=== PATIENT | male | born 1955 | race American Indian/Alaskan Native ===

== ENCOUNTER 2017-11-15 18:57 | Emergency (ER) | payer MEDICAID ==
[2017-11-15] MEDS ORDERED: ASPIRIN PO ONE (19:23)
[2017-11-15 21:13] LABS: Basophils % (Auto) 0.5 % (0.0-1.8); Eosinophils # (Auto) 0.1 K/mm3 (0.0-0.4); Eosinophils % (Auto) 1.5 % (0.0-4.3); Hematocrit 44.6 % (35.5-45.6); Hemoglobin 15.1 gm/dl (11.8-15.2); Lymphocytes # (Auto) 2.6 K/mm3 (1.2-5.4); Lymphocytes % (Auto) 33.2 % (13.4-35.0); Mean Corpuscular HGB Conc 34 % (32-34); Mean Corpuscular Hemoglobin 30 pg (28-32); Mean Corpuscular Volume 88 fl (84-94); Monocytes # (Auto) 0.6 K/mm3 (0.0-0.8); Platelet Count 197 K/mm3 (140-440); Red Blood Count 5.08 M/mm3 (3.65-5.03); Red Cell Distribution Width 12.9 % (13.2-15.2)
[2017-11-15 21:39] LABS: BUN/Creatinine Ratio 18; Blood Urea Nitrogen 18 mg/dL (9-20); Calcium 10.1 mg/dL (8.4-10.2); Hemolysis Index 4
[2017-11-16] MEDS ORDERED: NACL 0.9% 500 ML 500 ML IV ONE (00:38)
[2017-11-16] MEDS ORDERED: NACL 0.9% 1000 ML 1,000 ML IV ONE (02:10)
--- NOTE | 2017-11-16 02:10 | Emergency Department Report ---
HPI - General Chief Complaint: Hyperglycemia Time Seen by Provider: 11/16/17 00:36 - HPI HPI: The patient is a 62-year-old male presents for evaluation of lightheadedness and polyuria. The patient reports 6 days of severe lightheadedness, exacerbated with position changes and exertion, improved with rest and lying flat, and associated with severe constant polyuria and urinary frequency. The patient denies fever, chills, night sweats, diarrhea, blood in the stool, dark tarry stool, dysuria, hematuria, flank pain, genital discharge, inability to pass flatus. ED Past Medical Hx - Past Medical History Hx Asthma: No Hx COPD: No - Social History Smoking Status: Never Smoker Substance Use Type: None - Medications Home Medications: Home Medications Medication Instructions Recorded Confirmed Last Taken Type HYDROcodone/APAP 5-325 [[place] 1 tab PO PRN 03/25/14 03/27/14 02/25/14 History 5-325 mg TAB] Mv,Fr[place],Min/Iron/Folic Acid/Lut 1 tab PO DAILY 03/25/14 03/27/14 03/25/14 History [Complete Multi Tablet] [place]-3 Fatty Acids/Fish Oil [Fish 1 cap PO DAILY 03/25/14 03/27/14 03/25/14 History Oil] metFORMIN [Glucophage] 500 mg PO QDAY #30 tab 11/16/17 Unknown Rx ED Review of Systems ROS: Stated complaint: POSSIBLE DKA Other details as noted in HPI Constitutional: Reports lightheadedness denies: fever ENT: denies: throat or neck pain Respiratory: denies: cough, shortness of breath Cardiovascular: denies: chest pain Endocrine: reports polyuria and weight loss Gastrointestinal: denies: abdominal pain, nausea Genitourinary: denies: dysuria Musculoskeletal: denies: leg swelling Skin: denies: rash Neurological: denies: headache Hematological/Lymphatic: denies: easy bleeding or easy bruising Psych: denies sadness or hopelessness Physical Exam - Physical Exam Vital Signs: Vital Signs 11/15/17 11/15/17 19:16 22:45 Temperature 98 F Pulse Rate 92 H 91 H Respiratory 20 20 Rate Blood Pressure 110/80 148/83 Blood Pressure 110/80 [Left] O2 Sat by Pulse 99 99 Oximetry Physical Exam: General: well-nourished, well-developed, no acute distress Head: Normocephalic, atraumatic Eyes: normal sclera ENT: Mucous membranes are pale and dry Neck: No neck stiffness, no cervical adenopathy Respiratory: Breath sounds equal bilaterally, no wheezing, rales, or rhonchi Cardio: S1 and S2 present, no murmurs, rubs, gallops, capillary refill is delayed Abdomen: Normoactive bowel sounds, soft abdomen, no rigidity, no guarding or rebound tenderness Musc: No pitting edema Skin: No rash Neuro: no facial drooping, normal speech Psych: Normal affect ED Course Vital Signs 11/15/17 11/15/17 19:16 22:45 Temperature 98 F Pulse Rate 92 H 91 H Respiratory 20 20 Rate Blood Pressure 110/80 148/83 Blood Pressure 110/80 [Left] O2 Sat by Pulse 99 99 Oximetry ED Medical Decision Making - Lab Data Result diagrams: 11/15/17 20:50 11/15/17 20:50 - Medical Decision Making The patient was seen and examined by myself. The patient is placed on a freelance data entry and continuous pulse ox. On initial evaluation, the patient was found to be in no distress. Evaluation orders were placed. The patient given normal saline fluid bolus for treatment of dehydration. Lab results were elevated glucose of 440, with normal bicarbonate and venous pH, not concerning for DKA. As patient has no history of hyperglycemia, evaluation findings are consistent with new diagnosis of diabetes. The patient is given IV insulin for treatment of hyperglycemia. The patient was reevaluated and reported that their symptoms were markedly improved. The patient is stable for discharge with outpatient follow-up. The patient is given follow-up and return instructions. The patient expressed understanding and agreed with the plan. The patient is discharged in stable condition. Critical care attestation.: If time is entered above; I have spent that time in minutes in the direct care of this critically ill patient, excluding procedure time. ED Disposition Clinical Impression: Dehydration, New onset type 2 diabetes mellitus, Orthostatic lightheadedness Disposition: - TO HOME OR SELFCARE Is pt being admited?: No Does the pt Need Aspirin: No Condition: Stable Instructions: Diabetes Mellitus Type 2 in Adults (ED) Prescriptions: metFORMIN [Glucophage] 500 mg PO QDAY #30 tab Referrals: JAM DUNN MD [Primary Care Provider] - 3-5 Days Time of Disposition: 02:10
[2017-11-16 03:16] VITALS: BP 165/114
[2017-11-16] MEDS ORDERED: ASPIRIN ONE (04:28)
== END 2017-11-16 07:25 | disposition home or self-care (01) ==
LOC: ED 18:57
DX: E11.9 Type 2 diabetes mellitus without complications (principal); E86.0 Dehydration; R42 Dizziness and giddiness
CPT/HCPCS: 36415; 80048; 82805; 82962; 84484; 85025; 93005; 93010; 96361; 96374; 96376; 99284; J7030; J1815